=== PATIENT | female | born 1975 | race Caucasian/White ===

== ENCOUNTER 2022-09-06 09:24 | Observation (INO) ==
[2022-09-06] MEDS ORDERED: Lactated Ringers 1000 ml BAG 1,000 ML IV ONE ×2 (09:56→14:57)
[2022-09-06 10:11] LABS: ABS Basophils 0.1 10^3/ul (0-0.2); ABS Eosinophils 0.2 10^3/ul (0-0.6); ABS Lymphocytes 1.1 10^3/ul (1.0-4.8); ABS Monocytes 1.1 10^3/ul (0-0.8); ABS Neutrophils 10.3 10^3/ul (1.5-7.7); Eosinophil % 1.4 %; Hematocrit 40 % (35-47); Lymphocyte % 8.5 %; Mean Corpuscular HGB Conc 33 g/dL (31-36); Mean Corpuscular Hemoglobin 30 pg (27-31); Mean Corpuscular Volume 90 fL (80-97); Mean Platelet Volume 8.2 fL (7.4-10.4); Platelet Count 284 10^3/uL (150-450); Red Blood Count 4.37 10^6 /uL (3.70-4.87); Red Cell Distribution Width 13 % (10-15); White Blood Count 12.8 10^3/uL (3.5-10.8)
[2022-09-06 10:18] LABS: INR 1.05 (0.88-1.18)
[2022-09-06 10:34] LABS: Urine Appearance Cloudy; Urine Bilirubin Negative (Negative); Urine Blood Negative (Negative); Urine Color Yellow; Urine Glucose Negative (Negative); Urine Ketones Negative (Negative); Urine Nitrite Negative (Negative); Urine Protein Negative (Negative); Urine Specific Gravity 1.025 (1.002-1.030); Urine Urobilinogen Negative (Negative)
[2022-09-06 10:53] LABS: Albumin 4.1 g/dL (3.2-5.2); Calcium 9.5 mg/dL (8.6-10.3); Creatinine, Serum 0.75 mg/dL (0.51-0.95); Potassium 4.2 mmol/L (3.5-5.0); Total Protein 7.1 g/dL (6.4-8.9); eGFR CKD-EPI 98.1 (>60)
[2022-09-06 10:54] LABS: Albumin/Globulin Ratio 1.4 (1-3); Total Bilirubin 0.5 mg/dL (0.2-1.0)
[2022-09-06] MEDS ORDERED: Iohexol 300 (CONTRAST) 10 ML SDV IV ONE (11:13)
[2022-09-06 11:50] LABS: High Sensitivity Troponin 1 Hr < 3 pg/mL (<15)
[2022-09-06] MEDS ORDERED: Piperacillin/Tazobac ADVAN 3.375 GM in NS 0.9% 100 ml BAG 100 ML IV ONE (12:09)
[2022-09-06] MEDS: Enoxaparin 40 MG/0.4 ML SYR SUBCUT SCH (16:53)
[2022-09-06] MEDS ORDERED: cefTRIAXone 2 gm/50 mL D5W 2 GM/50 ML BAG IV SCH (18:30)
[2022-09-06] MEDS ORDERED: NS 0.9% IVPB SCH (19:00)
[2022-09-06] MEDS ORDERED: CEFTRIAXONE IVPB SCH (19:00)
[2022-09-06] MEDS: metroNIDAZOLE IV 500 MG/100ML 500 MG/100 ML BAG IVPB SCH (20:18)
[2022-09-06] MEDS: Morphine 2 MG/ML SYRINGE IV PRN (21:30)
[2022-09-06] MEDS ORDERED: Ondansetron 4 mg VIAL 2 MG/ML 2 ml VIAL ONE (21:38)
[2022-09-06] MEDS: Ondansetron 4 mg VIAL 2 MG/ML 2 ml VIAL IV ONE (21:40)
[2022-09-07] MEDS: Morphine 2 MG/ML SYRINGE IV PRN (03:17)
[2022-09-07] MEDS: Ondansetron 4 mg VIAL 2 MG/ML 2 ml VIAL IV ONE (03:17)
[2022-09-07] MEDS: metroNIDAZOLE IV 500 MG/100ML 500 MG/100 ML BAG IVPB SCH ×4 (03:45→21:43)
[2022-09-07 05:45] LABS: Hematocrit 33 % (35-47); Hemoglobin 11.1 g/dL (12.0-16.0); Mean Corpuscular HGB Conc 33 g/dL (31-36); Mean Corpuscular Hemoglobin 30 pg (27-31); Mean Corpuscular Volume 90 fL (80-97); Mean Platelet Volume 8.2 fL (7.4-10.4); Platelet Count 238 10^3/uL (150-450); Red Cell Distribution Width 13 % (10-15); White Blood Count 9.7 10^3/uL (3.5-10.8)
[2022-09-07 06:31] LABS: Blood Urea Nitrogen 6 mg/dL (6-24); CO2 Carbon Dioxide 25 mmol/L (22-32); Calcium 8.1 mg/dL (8.6-10.3); Chloride 109 mmol/L (101-111); Creatinine, Serum 0.61 mg/dL (0.51-0.95); Glucose 99 mg/dL (70-100); Magnesium 1.9 mg/dL (1.9-2.7); Sodium 140 mmol/L (135-145); eGFR CKD-EPI 110.2 (>60)
[2022-09-07 06:33] LABS: Anion Gap 6 mmol/L (2-11)
[2022-09-07] MEDS: Enoxaparin 40 MG/0.4 ML SYR SUBCUT SCH (15:17)
[2022-09-07] MEDS ORDERED: Ondansetron 4 mg VIAL 2 MG/ML 2 ml VIAL IV PRN (19:36)
[2022-09-07] MEDS ORDERED: cefTRIAXone 2 gm/50 mL D5W 2 GM/50 ML BAG IV SCH (20:00)
[2022-09-08] MEDS: metroNIDAZOLE IV 500 MG/100ML 500 MG/100 ML BAG IVPB SCH ×2 (05:59→14:32)
[2022-09-08] MEDS: Morphine 2 MG/ML SYRINGE IV PRN (06:05)
[2022-09-08 08:22] LABS: Hematocrit 34 % (35-47); Hemoglobin 11.4 g/dL (12.0-16.0); Mean Corpuscular HGB Conc 33 g/dL (31-36); Mean Corpuscular Hemoglobin 30 pg (27-31); Mean Corpuscular Volume 90 fL (80-97); Mean Platelet Volume 8.8 fL (7.4-10.4); Platelet Count 257 10^3/uL (150-450); Red Blood Count 3.82 10^6 /uL (3.70-4.87); Red Cell Distribution Width 12 % (10-15); White Blood Count 4.6 10^3/uL (3.5-10.8)
[2022-09-08] MEDS: Enoxaparin 40 MG/0.4 ML SYR SUBCUT SCH (14:24)
[2022-09-08 16:59] VITALS: BP 112/75
== END 2022-09-08 18:40 | disposition home or self-care (01) ==
LOC: EDHOLD 09:24 → ED 09:24 → SUATTDRO 14:54 → MED 09-07 15:31
PROVIDERS: ADMIT Internal Medicine; ATTEND Internal Medicine